=== PATIENT | female | born 1955 ===

== ENCOUNTER 2023-03-15 10:03 | Inpatient (IN) | payer OTHER ==
[~2023-03-15] VITALS: Ht 167.6 cm; Wt 88.9 kg
[2023-03-15] MEDS ORDERED: SYNTHROID100 MCG PO (15:28)
[2023-03-15] MEDS ORDERED: ZESTRIL5 MG PO (15:28)
[2023-03-22] MEDS ORDERED: ACETAMINOPHEN500 M2 PO (10:01)
[2023-03-22] MEDS ORDERED: NEURONTIN300 MG PO (10:01)
[2023-03-22] MEDS ORDERED: INTEGRA F CAPS1 EACH PO (10:01)
== END 2023-03-22 10:58 | disposition home or self-care (01) | DRG 330 ==
LOC: O/R 03-18 06:36 → SURH 03-18 06:36
PROVIDERS: ADMIT Surgery; ATTEND Surgery
PROC: 0DBP4ZZ Excision of Rectum, Percutaneous Endoscopic Approach (ICD-10-PCS; 2023-03-18)
PROC: 0DJD8ZZ Inspection of Lower Intestinal Tract, Via Natural or Artificial Opening Endoscopic (ICD-10-PCS; 2023-03-18)
PROC: 3E0F7SF Introduction of Other Gas into Respiratory Tract, Via Natural or Artificial Opening (ICD-10-PCS; 2023-03-18)
PROC: 0DTN4ZZ Resection of Sigmoid Colon, Percutaneous Endoscopic Approach (ICD-10-PCS; principal; 2023-03-18 12:00)
DX: K57.30 Diverticulosis of large intestine without perforation or abscess without bleeding (principal); K56.690 Other partial intestinal obstruction; K66.0 Peritoneal adhesions (postprocedural) (postinfection); R10.9 Unspecified abdominal pain; K59.09 Other constipation; D64.89 Other specified anemias